=== PATIENT | female | born 1955 | race Caucasian/White ===

== ENCOUNTER 2017-05-24 09:15 | Inpatient (IN) | payer OTHER ==
[~2017-05-24] VITALS: Ht 154.9 cm; Wt 116.8 kg
--- NOTE | ~2017-05-24 | CON ---
[place], [place] REPORT OF CONSULTATION [id number] UNIT #: [id number] ROOM: 522 DOCTOR: DANA CHAUDHARY MD BIRTHDATE: [birth year] DOS: 05/24/2017 REASON FOR CONSULTATION: Chest heaviness. HISTORY OF PRESENT ILLNESS: The patient is a 61-year-old woman with a history of diabetes and hypertension. She presented to the hospital with "dizziness" which has been present for a year, but has been getting worse lately. She states that she has been evaluated here for this in the past and no adequate explanation for his symptoms has been forthcoming. She has not seen an ear, nose and throat physician. She states that the dizziness is worse with changes in posture. She states that she feels disoriented and does not know exactly where the ground is. Lying down makes it worse. She has been treated with meclizine in the past without benefit. The patient was referred to Cardiology because of chest tightness. She states that it is intermittent. It is associated with dyspnea and it is hard for the patient to determine whether the dyspnea makes her chest feel tighter, the tightness makes her dyspneic. She notes that when she is active, it is better if she is resting. It is not changed much lately. PAST MEDICAL HISTORY: Includes: 1. Essential hypertension. 2. Type 2 diabetes mellitus. 3. Long-term and ongoing cigarette abuse. 4. Chronic obstructive pulmonary disease with frequent wheezing. 5. Graves' disease status post radioactive iodine thyroid ablation. 6. History of cervical cancer. 7. Status post hysterectomy, cholecystectomy and tonsillectomy. MEDICATIONS: Prior to admission, cetirizine 10 mg daily, citalopram 40 mg daily, levothyroxine 175 mcg daily, lisinopril 10 mg daily, metformin 500 mg b.i.d., metoprolol 100 mg daily and omeprazole 40 mg daily. ALLERGIES: She has no known drug allergies. FAMILY HISTORY: Negative for early coronary artery disease. Her daughter does have some form of tachycardia syndrome. REVIEW OF SYSTEMS: The patient denies diplopia or loss of vision. She denies syncope, although she feels lightheaded frequently. She feels like she might fall, but has not fallen yet. She denies focal weakness. She denies orthopnea or PND. She denies fevers, chills or sweats. She has had a gradual weight gain over the last year. She denies nausea or vomiting. She denies hemoptysis or hematemesis. She denies any change in bowel or bladder habits and denies bleeding in her stools or urine. She does admit to mild peripheral edema. She denies any skin rashes. She denies polyuria or polydipsia. SOCIAL HISTORY: The patient is a . Her of heart disease. She does smoke up to a pack a day. [place], [place] REPORT OF CONSULTATION NAME: NITIN LOCKETT UNIT #: [id number] ROOM: 522 DOCTOR: DANA CHAUDHARY MD BIRTHDATE: [birth year] PHYSICAL EXAMINATION: GENERAL: Reveals a morbidly obese white female who is awake, alert and oriented. VITAL SIGNS: Pulse is 68 and regular, blood pressure is 122/58. She is afebrile. She weighs 116.8 kg and has a body mass index 48.7. HEENT: Normocephalic and atraumatic. Extraocular muscles are intact. Sclerae are clear. Pupils are equal, round and react to light. The oral mucosa is moist. Tongue is midline. NECK: Supple. She has no jugular distention. Carotids are full and I heard no bruits. She had no neck or supraclavicular masses. LUNGS: Respirations are slightly labored at rest. She does have loud bruit scattered throughout all of her lung owen. She has no presacral edema or chest wall tenderness. CARDIOVASCULAR: Her heart has a regular rhythm without murmurs, rubs or gallops. The PMI is not displaced. She has no precordial heave, lift or thrill. ABDOMEN: Obese, but otherwise benign, without masses, organomegaly or bruits. EXTREMITIES: Showed no clubbing, cyanosis or edema. She had no palpable cords or Homans sign. Pedal pulses are full and equal bilaterally. IMPRESSION: 1. Acute exacerbation of chronic lung disease. The patient is actively wheezing and feels uncomfortable lying flat. While I agree that she probably should undergo cardiac testing, I do not think that she would tolerate a pharmacologic stress test at this time and I therefore will postpone it. 2. Essential hypertension, which is in good control. 3. Type 2 diabetes mellitus. 4. Dizziness, which sounds like a balance issue as opposed to hypotension and near syncope. PLAN: We will be getting an echocardiogram to assess left ventricular function, wall motion and valve function. For now, we will postpone her stress test. Down the line, possibly as an outpatient, a pharmacologic stress test would be useful in her ongoing management; however, I think it is very unlikely that her tightness currently has anything to do with coronary ischemia. The patient was strongly advised to quit smoking immediately. A CAT scan of the chest is pending to evaluate her for possible lingular pneumonia, which appears to be present on her standard chest x-ray. Bronchodilator therapy, etc. will be at the discretion of her primary physicians; however, I would like her lungs to be clear before I consider stressing her. [facility] and I thank the hospitalist physicians for asking our advice regarding the patient's care. [place], [place] REPORT OF CONSULTATION NAME: NITIN LOCKETT [facility] UNIT #: [id number] ROOM: 522 DOCTOR: DANA CHAUDHARY MD BIRTHDATE: [birth year] DANA CHAUDHARY MD CM:CONSTR:REPORT OF CONSULTATION 19 05/24/[id number] interface
[~2017-05-24 09:15] MED LIST: ADVAIR 250/501 EA INH; CELEXA40 MG PO; Cimetidine400 MG PO; D-1000 185 MG-11 TAB PO; FLEXERIL5 MG PO; FLUCONAZOLE100 MG PO; HYDROCODONE BIT1 T11 PO; IBU800 MG PO; LASIX20 MG PO; LASIX40 MG PO; LEVOTHYROXINE0.15 M1 PO; LEVOTHYROXINE0.15 MG PO; MECLIZINE HCL12.5 MG PO; MELOXICAM7.5 MG PO; MICONAZOLE NITRATE 2% T; NAPROSYN500 MG PO; NORCO 325 MG-51 TAB PO; NORCO 5-325 TA1 EACH PO; NYAMYC100000 U/G T; OMEPRAZOLE40 MG PO; PRINIVIL10 MG PO; SYMBICORT1 AE1 INH; SYNTHROID0.137 MG PO; TOPROL XL100 MG PO; YEAST CREAM
[2017-05-24 09:22] VITALS: BP 143/74
[2017-05-24] MEDS ORDERED: METFORMIN500 MG PO (09:25)
[2017-05-24 10:08] LABS: BASO # 0.1 10*3/uL (0.0-0.1); BASO % 0.4 % (0.0-1.0); EOS # 0.1 10*3/uL (0.0-0.4); EOS % 0.9 % (1.0-4.0); HEMATOCRIT 43.4 % (37.0-47.0); LYMPH # 2.1 10*3/uL (1.3-4.4); LYMPH % 15.5 % (27.0-41.0); MEAN CELL VOLUME 91.9 fl (81.0-99.0); MEAN CORPUSCULAR HGB 31.8 pg (27.0-31.0); MEAN CORPUSCULAR HGB CONC 34.6 g/dl (33.0-37.0); MEAN PLATELET VOLUME 9.9 fl (9.6-12.3); MONO # 0.9 10*3/uL (0.1-1.0); MONO % 6.6 % (3.0-9.0); NEUT # 10.5 10*3/uL (2.3-7.9); NEUT % 76.2 % (47.0-73.0); PLATELET COUNT AUTOMATED 314 10*3/uL (130-400); RED BLOOD COUNT 4.72 10*6/uL (4.10-5.10); RED CELL DISTRI WIDTH 12.9 % (0-14.5); WHITE BLOOD COUNT 13.8 10*3/uL (4.8-10.8)
[2017-05-24 10:25] LABS: ALBUMIN 3.1 gm/dl (3.1-4.5); ALKALINE PHOSPHATASE 108 U/L (45-117); BUN 9 mg/dl (7-24); CHLORIDE 102 mmol/L (98-107); CREATININE 0.57 mg/dL (0.55-1.02); FREE T4 1.68 ng/dl (0.76-1.46); POTASSIUM 3.3 mmol/L (3.5-5.1); SGOT/AST 14 IU/L (3-35); SGPT/ALT 21 U/L (12-78); SODIUM 137 mmol/L (136-145); TOTAL PROTEIN 7.3 gm/dL (6.4-8.2)
[2017-05-24 10:28] LABS: TROPONIN I < 0.015 ng/ml (<0.045)
[2017-05-24 10:31] LABS: THYROID STIM HORMONE (HS) 0.678 uIU/ml (0.358-4.75)
[2017-05-24 11:20] VITALS: BP 128/76
[2017-05-24 11:27] LABS: BILIRUBIN NEGATIVE (NEGATIVE); BLOOD 2+ (NEGATIVE); CLARITY CLEAR (CLEAR); COLOR YELLOW (YELLOW); GLUCOSE NEGATIVE (NEGATIVE); KETONE NEGATIVE (NEGATIVE); LEUKO ESTERASE NEGATIVE (NEGATIVE); NITRITE NEGATIVE (NEGATIVE); UROBILINOGEN 0.2 E.U./dl (0.2-1.0)
[2017-05-24 13:00] VITALS: BP 142/80
[2017-05-24] MEDS ORDERED: ZYRTEC10 MG PO (13:29)
[2017-05-24 13:45] VITALS: BP 116/51
--- NOTE | 2017-05-24 13:50 | NUR ---
Time: 1349 A 61 year old FEMALE admitted to 5E under services of JANAE CLAROS DO, Pt. arrived via stretcher from ER. Chief complaint: FEELING DIZZY FOR THE PAST MONTH. JUST STARTED METFORMIN A LITTLE OVER A MONTH AGO. SALOME CHEUNG
--- NOTE | 2017-05-24 14:02 | NUR ---
MEDS VERIFIED WITH [facility]
--- NOTE | 2017-05-24 14:30 | NUR ---
NOTIFIED DR CONWAY THAT MEDS WERE VERIFIED
--- NOTE | 2017-05-24 15:53 | NUR ---
NOTIFIED RAJ IN [facility] OF CONSULT
[2017-05-24 16:00] VITALS: BP 122/58
[2017-05-24 20:00] VITALS: BP 130/61
--- NOTE | 2017-05-24 20:00 | NUR ---
PT. AWAKE, ALERT AND ORIENTED X 3 AT THIS TIME. PT. IN BED AT THIS TIME. PT. DENIES SOB, LUNGS CLEAR. PT. DENIES CP AT THIS TIME, HRR, PPP, TRACE EDEMA TO BLE. BS NORMO X 4 QUADS, DENIES NVD. PT. AMBULATORY, SKIN WDI. CALL LIGHT WITHIN REACH, BED IN LOWEST POSITION, WHEELS LOCKED.
[2017-05-25] VITALS: BP 144/73
[2017-05-25 07:15] LABS: BASO # 0.1 10*3/uL (0.0-0.1); BASO % 0.7 % (0.0-1.0); EOS # 0.1 10*3/uL (0.0-0.4); EOS % 1.3 % (1.0-4.0); HEMATOCRIT 41.6 % (37.0-47.0); HEMOGLOBIN 13.9 g/dl (12.0-16.0); LYMPH # 3.4 10*3/uL (1.3-4.4); LYMPH % 31.5 % (27.0-41.0); MEAN CELL VOLUME 96.5 fl (81.0-99.0); MEAN CORPUSCULAR HGB 32.3 pg (27.0-31.0); MEAN CORPUSCULAR HGB CONC 33.4 g/dl (33.0-37.0); MEAN PLATELET VOLUME 10.1 fl (9.6-12.3); MONO # 0.7 10*3/uL (0.1-1.0); MONO % 6.8 % (3.0-9.0); NEUT # 6.4 10*3/uL (2.3-7.9); NEUT % 59.4 % (47.0-73.0); PLATELET COUNT AUTOMATED 302 10*3/uL (130-400); RED BLOOD COUNT 4.31 10*6/uL (4.10-5.10); WHITE BLOOD COUNT 10.8 10*3/uL (4.8-10.8)
[2017-05-25 07:37] LABS: ALBUMIN 2.8 gm/dl (3.1-4.5); BUN 10 mg/dl (7-24); CHLORIDE 104 mmol/L (98-107); CHOLESTEROL 136 mg/dL (<200); CREATININE 0.58 mg/dL (0.55-1.02); PHOSPHOROUS 2.3 mg/dL (2.5-4.9); POTASSIUM 3.7 mmol/L (3.5-5.1); SGOT/AST 13 IU/L (3-35); SGPT/ALT 19 U/L (12-78); SODIUM 139 mmol/L (136-145); TRIGLYCERIDES 130 mg/dl (<150); VLDL CHOLESTEROL 26 mg/dL (6-40)
[2017-05-25 07:43] LABS: ALKALINE PHOSPHATASE 95 U/L (45-117); HDL CHOLESTEROL 39 mg/dl (40-60); LDL CHOLESTEROL 71 mg/dL (9-159); THYROID STIM HORMONE (HS) 0.564 uIU/ml (0.358-4.75); TOTAL PROTEIN 6.6 gm/dL (6.4-8.2)
[2017-05-25 08:00] VITALS: BP 133/54
--- NOTE | 2017-05-25 08:30 | NUR ---
Administrative Services Coordinator in to talk to patient. Patient states lives at home alone. There are no steps in the home. Physician: Jyoti Galloway CNP Pharmacy: [facility] services: none Patient's level of ADLs: INDEPENDENT Patient has working utilities: yes DME: none Follow-up physician's appointment after d/c: will be made by hospitalist nurse director upon discharge Does patient want to access PORTAL?: no Discharge plan discussed with patient. She lives at home alone. She is independent in her ADLs and ambulation. Denies any home needs at this time. When medically stable she will be discharged to home. CHARLIE BAJWA
[2017-05-25 09:15] LABS: VITAMIN D, 25-HYDROXY 19.1 ng/mL (30-100)
--- NOTE | 2017-05-25 10:43 | NUR ---
PT WAS EVALUATED BY OCCUPATIONAL THERAPY ON THE 5TH FLOOR FOR CONSULT REGUARDING WEAKNESS. PT LOW LEVEL EVALUATION WITH SYMPTOMS OF DIZZINESS WHEN TRANSFERING. PT PRECAUTIONS OF DIZZINESS AND IV. PT WITH NO REPORTS OF DIZZINESS DURING EVALUATION AND ABLE TO COMPLETE ADL/IADL TASKS WITH IND. PT NOT RECOMMENDED FOR FURTHER INPATIENT OCCUPATIONAL THERAPY THREATMENS. RECOMMEND HOME HEALTH OT TO ASSESS NEED FOR SHOWER CHAIR/TUB BENCH PER PT REQUEST. THANK YOU FOR THE CONSULT. KIP MONAHAN OTR/L
[2017-05-25 12:00] VITALS: BP 101/77
[2017-05-25] MEDS ORDERED: SOLU-MEDRO40 MG/1 ML IV (14:26)
[2017-05-25] MEDS ORDERED: Vitamin D PO (14:26)
[2017-05-25] MEDS ORDERED: ASPIRIN325 MG PO (14:26)
--- NOTE | 2017-05-25 15:51 | NUR ---
PT REPORT GIVEN TO RAJ AT [facility]. HEAD TO TOE ASSESSMENT GIVEN [facility] COURSE OF CARE. TELEPHONE NUMBER GIVEN TO FLOOR INCASE OF FURTHER QUESTIONS. AT THIS TIME. NO CONCERNS WERE GIVEN.
--- NOTE | 2017-05-25 16:51 | NUR ---
Physcial therapy evaluation completed. Pt in NAD. Pt denied dizziness at any time during this assessemt. Pt able to ambulate x 150ft without assistive devices with supervision, no LOB, no unsteadiness. Transfers independent. Pt denies pain. Pt has equal LE strength, performs very well on Romberg with eyes open and eyes closed, performes well on proprioception and coordination tasks. Pt reports the only dizziness she had was lying supine for tests today. Pt to follow up with neurology for further testing. Moderate level complexity for this PT Eval d/t time spent with patient, multiple tests and with chart review. Thank you for this referral, safia norris, PT
--- NOTE | 2017-05-25 18:00 | NUR ---
Discharge instructions reviewed with patient/family. Patient receptive and verbalizes understanding. Follow-up care arranged. Written instructions given to patient/family. BINH BECK
== END 2017-05-25 18:00 | disposition short-term general hospital (02) | DRG 64 ==
LOC: ED 09:15 → EDHOLD 11:49 → 5E 11:49 → EDHOLD 12:18 → 5E 12:53
PROVIDERS: Internal Medicine; Physician Assistant; ADMIT Internal Medicine
DX: I63.133 Cerebral infarction due to embolism of bilateral carotid arteries (principal); J18.1 Lobar pneumonia, unspecified organism; I24.9 Acute ischemic heart disease, unspecified; E11.65 Type 2 diabetes mellitus with hyperglycemia; J44.1 Chronic obstructive pulmonary disease with (acute) exacerbation; J44.0 Chronic obstructive pulmonary disease with (acute) lower respiratory infection; K21.9 Gastro-esophageal reflux disease without esophagitis; R07.89 Other chest pain; I95.1 Orthostatic hypotension; F17.210 Nicotine dependence, cigarettes, uncomplicated; R31.9 Hematuria, unspecified; E87.6 Hypokalemia; I10 Essential (primary) hypertension; E05.00 Thyrotoxicosis with diffuse goiter without thyrotoxic crisis or storm; Z79.84 Long term (current) use of oral hypoglycemic drugs; Z79.82 Long term (current) use of aspirin; Z79.899 Other long term (current) drug therapy; Z90.49 Acquired absence of other specified parts of digestive tract; Z90.710 Acquired absence of both cervix and uterus; Z80.8 Family history of malignant neoplasm of other organs or systems; Z82.3 Family history of stroke; Z82.49 Family history of ischemic heart disease and other diseases of the circulatory system

== ENCOUNTER 2017-08-31 17:16 | Emergency (ER) | payer OTHER ==
[~2017-08-31] VITALS: Wt 114.8 kg
[2017-08-31 17:16] VITALS: BP 141/62
[~2017-08-31 17:16] MED LIST changes: +ASPIRIN325 MG PO; +METFORMIN500 MG PO; +SOLU-MEDRO40 MG/1 ML IV; +Vitamin D PO; +ZYRTEC10 MG PO
[2017-08-31] MEDS ORDERED: FLUCONAZOLE100 MG PO (17:52)
== END 2017-08-31 17:57 | disposition home or self-care (01) ==
LOC: ED 17:16
DX: B36.8 Other specified superficial mycoses (principal); F17.200 Nicotine dependence, unspecified, uncomplicated; E11.9 Type 2 diabetes mellitus without complications; K21.9 Gastro-esophageal reflux disease without esophagitis; I10 Essential (primary) hypertension; Z90.710 Acquired absence of both cervix and uterus; Z90.49 Acquired absence of other specified parts of digestive tract; Z79.82 Long term (current) use of aspirin; Z79.899 Other long term (current) drug therapy

== ENCOUNTER 2017-09-04 11:20 | Inpatient (IN) | payer OTHER ==
[~2017-09-04] VITALS: Ht 157.4 cm; Wt 114.9 kg
--- NOTE | ~2017-09-04 | PR ---
[place], [place] PROGRESS NOTE NAME: NITIN LOCKETT UNIT #: [id number] ROOM: 506 DOCTOR: PRABHA ALEGRE MD BIRTHDATE: [birth year] DOS: NO DICTATION. Mamta Alegre MD CM:PNTRANS [id number] PRABHA ALEGRE MD 09/06/17 0704 YOGESH DALEY MIS.R
--- NOTE | ~2017-09-04 | PR ---
[place], [place] PROGRESS NOTE NAME: NITIN LOCKETT [facility] #: [id number] UNIT #: [id number] ROOM: 506 DOCTOR: PRABHA ALEGRE MD BIRTHDATE: [birth year] DOS: 09/04/2017 CHIEF COMPLAINT: Generalized rash all over the body, pruritic. HISTORY OF PRESENT ILLNESS: This is a 62-year-old female with past medical history of diabetes, obesity, presenting with a generalized pruritic rash which has been going on for last 3 months according to her. Initially, she had a rash under her breast, which was treated with nystatin powder and bacitracin; did not get better; recently was in the ER and was given 100 mg of Diflucan that did not resolve her symptoms, but she now noticed to have some chills and finally decided to come to the ER. On her presentation, she had a leukocytosis of 15.9. Her vitals reveal temperature which is in normal range. Labs reveal no lactic acidosis. Alk phos slightly elevated. PAST MEDICAL HISTORY: Significant for COPD with emphysema, GERD, Graves' disease, hyperlipidemia, hypertension, hypothyroidism; type 2 diabetes mellitus, on oral hypoglycemics. PAST SURGICAL HISTORY: Hysterectomy, radioactive iodine thyroid ablation, history of cholecystectomy, trauma to the right upper extremity, cholecystectomy and tonsillectomy. SOCIAL HISTORY: The patient smokes 1 pack of cigarettes per day, active smoker. No use of marijuana. Nonalcoholic. No other illicit drug use. FAMILY HISTORY: Father has history of skin cancer. Mother of old age. ALLERGIES: No known drug allergies. MEDICATIONS: Include aspirin, cetirizine, Celexa, fluconazole, fluticasone, levothyroxine, lisinopril, metformin, metoprolol, omeprazole. REVIEW OF SYSTEMS: Twelve-point review of systems has been done. Pertinent negative/positives are included in HPI, rest are noncontributory. PHYSICAL EXAMINATION: VITAL SIGNS: Temperature of 98.0, pulse rate of 68, blood pressure of 128/56, respiratory rate of 16, oxygen saturation 93% on room air. GENERAL: The patient is alert, oriented x 3 in mild distress because of her itching. HEENT: Atraumatic, normocephalic. PERRLA, EOMI. Proptosis noted in eyes. No conjunctival injection. RESPIRATORY: Air entry bilaterally equal; focal wheezing on both the lungs on expiration, right more than left. CARDIOVASCULAR: S1, S2 normal. No murmurs, rubs or gallops. ABDOMEN: Soft, nontender, nondistended. Bowel sounds present in 4 quadrants. EXTREMITIES: A 1+ pitting edema. SKIN: Generalized papule plaque like presentation concentrated over her chest and upper back, scattered over her abdomen. Under her breasts, there is generalized erythema, plaque-like lesion around her nipples; none in oral or [place], [place] PROGRESS NOTE NAME: NITIN LOCKETT UNIT #: [id number] ROOM: 506 DOCTOR: PRABHA ALEGRE MD BIRTHDATE: [birth year] vaginal mucosa. None of these ulcerations have pustular drainage. They are nontender. Some have crusting, not much of drainage at this point. There are also eczematous lesions on her hand. LABORATORY DATA: WBC 15.9, hemoglobin 14.9, sodium 139, potassium 3.4, BUN 12, creatinine 0.72, glucose of 105, no lactic acidosis. Alk phos 126. IMPRESSION AND PLAN: Generalized, pruritic, nontender papular plaque-like lesions. Differentials At this point include Erica intertrigo, eczema herpeticum, secondary bacterial infection with MRSA or corynebacterium minutissimum causing erythrasma. PLAN: 1. At this time, I agree with continuing IV fluconazole for systemic infection. 2. The patient has history of MRSA skin infection in the past. Continue vancomycin. There is no open lesion from where I can take a culture. 3. Consult General Surgery for skin biopsy. 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 These lesions do not look like zoster lesions. 4. Check HIV and hepatitis panel. 5. Wound care with ____. Thank you for your consult. Please call for any questions. We will follow the patient. Mamta Alegre MD CM:PNTRANS [phone] PRABHA ALEGRE MD 09/06/17 0704 YOGESH DALEY.R
--- NOTE | ~2017-09-04 | PR ---
[place], [place] PROGRESS NOTE NAME: NITIN LOCKETT UNIT #: [id number] ROOM: 506 DOCTOR: PRABHA ALEGRE MD BIRTHDATE: [birth year] DOS: 09/05/2017 SUBJECTIVE: Currently, the patient denies any fever or chills. No nausea, vomiting. Subjectively, her pruritus is much better. Tolerating the IV medications. No side effects noted. REVIEW OF SYSTEMS: A 10-point review of systems has been done. Pertinent negative positive has been included in HPI notes and noncontributory. PHYSICAL EXAMINATION: VITAL SIGNS: Temperature 98.2, pulse rate of 73, blood pressure 131/64, oxygen saturation 95% on room air. GENERAL: The patient is alert, oriented x 3, not in acute distress. RESPIRATORY: Air entry bilaterally equal. No wheeze or crackles. CARDIOVASCULAR: S1, S2 normal. No murmur, rubs or gallops. ABDOMEN: Soft, nontender, nondistended. Bowel sounds present in all quadrants. EXTREMITIES: 2+ pitting edema. SKIN: Generalized rash over her body, papular pustular ____ now healing. None of them have any pustular lesions. Most of them have crusting and there is decreased erythema, nontender, no discharge, decreasing in size. No surrounding cellulitis. LABORATORY DATA: WBC count 14.9, platelets 309, predominantly neutrophilia. Lymphocytic percentage slightly increased today, not increased eosinophil counts. BUN 11, creatinine 0.64. Hemoglobin A1c 6.5. Liver enzymes within normal limits. HSV, hepatitis C, hep B serology pending. IMPRESSION AND PLAN: 1. Generalized pruritic papular lesions. Differentials include bacterial superinfections, Eczema herpeticum. 2. Erica intertrigo. PLAN: 1. At this point, both clinically as well on physical exam, patient's lesions are improving. Added HIV screen and hepatitis B pending. In her case, most of the lesions have crusted, still trying to send HSV PCR. HSV serology is only helpful to see if she has IgG elevated. If the patient does not improve without acyclovir treatment then only would intend to treat it, otherwise not. 2. Overall, If clinically improves, we will change her IV dye, fluconazole and IV vancomycin to 2 pills tomorrow. Currently, holding off on skin biopsy. Discussed with Dr. Ochoa. Thank you for the consult. Please call for any questions. [place], [place] PROGRESS NOTE NAME: NITIN LOCKETT UNIT #: [id number] ROOM: [facility] DOCTOR: PRABHA ALEGRE MD BIRTHDATE: [birth year] Mamta Alegre MD CM:PNTRANS [phone] PRABHA ALEGRE MD 09/05/17 230 interface
[2017-09-04 11:23] VITALS: BP 167/86
[2017-09-04 12:57] LABS: BASO # 0.1 10*3/uL (0.0-0.1); BASO % 0.8 % (0.0-1.0); EOS # 0.3 10*3/uL (0.0-0.4); EOS % 1.6 % (1.0-4.0); HEMATOCRIT 44.2 % (37.0-47.0); HEMOGLOBIN 14.9 g/dl (12.0-16.0); LYMPH # 2.6 10*3/uL (1.3-4.4); LYMPH % 16.5 % (27.0-41.0); MEAN CELL VOLUME 92.7 fl (81.0-99.0); MEAN CORPUSCULAR HGB 31.2 pg (27.0-31.0); MEAN CORPUSCULAR HGB CONC 33.7 g/dl (33.0-37.0); MEAN PLATELET VOLUME 9.8 fl (9.6-12.3); MONO # 0.9 10*3/uL (0.1-1.0); MONO % 5.9 % (3.0-9.0); NEUT # 11.9 10*3/uL (2.3-7.9); NEUT % 74.8 % (47.0-73.0); PLATELET COUNT AUTOMATED 339 10*3/uL (130-400); RED BLOOD COUNT 4.77 10*6/uL (4.10-5.10); RED CELL DISTRI WIDTH 13.3 % (0-14.5); WHITE BLOOD COUNT 15.9 10*3/uL (4.8-10.8)
[2017-09-04 13:11] LABS: ALBUMIN 3.2 gm/dl (3.1-4.5); ALKALINE PHOSPHATASE 126 U/L (45-117); BUN 12 mg/dl (7-24); CHLORIDE 100 mmol/L (98-107); CREATININE 0.72 mg/dL (0.55-1.02); POTASSIUM 3.4 mmol/L (3.5-5.1); SGOT/AST 13 IU/L (3-35); SGPT/ALT 21 U/L (12-78); SODIUM 139 mmol/L (136-145); TOTAL PROTEIN 7.3 gm/dL (6.4-8.2)
[2017-09-04 14:03] VITALS: BP 154/80
[2017-09-04] MEDS ORDERED: ASPIRIN ADULT L81 M1 PO (14:06)
[2017-09-04] MEDS ORDERED: LISINOPRIL10 M1 PO (14:09)
[2017-09-04] MEDS ORDERED: BREO ELLIPTA 11 EACH INH (14:09)
[2017-09-04] MEDS ORDERED: ALL DAY ALLERGY10 MG PO (14:09)
[2017-09-04] MEDS ORDERED: AVPAK METFORMI500 M1 PO (14:11)
[2017-09-04 14:30] VITALS: BP 118/71
[2017-09-04 20:00] VITALS: BP 120/56
[2017-09-05] VITALS: BP 117/44
[2017-09-05 06:47] LABS: BASO # 0.1 10*3/uL (0.0-0.1); BASO % 0.7 % (0.0-1.0); EOS # 0.5 10*3/uL (0.0-0.4); EOS % 3.1 % (1.0-4.0); HEMATOCRIT 42.1 % (37.0-47.0); HEMOGLOBIN 13.9 g/dl (12.0-16.0); LYMPH % 19.8 % (27.0-41.0); MEAN CELL VOLUME 93.8 fl (81.0-99.0); MEAN PLATELET VOLUME 10.2 fl (9.6-12.3); MONO % 6.4 % (3.0-9.0); NEUT # 10.4 10*3/uL (2.3-7.9); NEUT % 69.6 % (47.0-73.0); PLATELET COUNT AUTOMATED 309 10*3/uL (130-400); RED BLOOD COUNT 4.49 10*6/uL (4.10-5.10); RED CELL DISTRI WIDTH 13.5 % (0-14.5); WHITE BLOOD COUNT 14.9 10*3/uL (4.8-10.8)
[2017-09-05 07:12] LABS: BUN 11 mg/dl (7-24); CHLORIDE 100 mmol/L (98-107); CREATININE 0.64 mg/dL (0.55-1.02); PHOSPHOROUS 3.6 mg/dL (2.5-4.9); POTASSIUM 3.3 mmol/L (3.5-5.1); SODIUM 138 mmol/L (136-145)
[2017-09-05 08:00] VITALS: BP 132/54
[2017-09-05 12:00] VITALS: BP 131/64
[2017-09-05 16:00] VITALS: BP 141/76
[2017-09-05 20:00] VITALS: BP 134/62
[2017-09-06] VITALS: BP 146/73
[2017-09-06 05:51] LABS: BASO # 0.1 10*3/uL (0.0-0.1); BASO % 0.8 % (0.0-1.0); EOS # 0.6 10*3/uL (0.0-0.4); EOS % 4.6 % (1.0-4.0); HEMOGLOBIN 13.3 g/dl (12.0-16.0); LYMPH # 2.1 10*3/uL (1.3-4.4); LYMPH % 17.6 % (27.0-41.0); MEAN CELL VOLUME 94.7 fl (81.0-99.0); MEAN CORPUSCULAR HGB 30.7 pg (27.0-31.0); MEAN CORPUSCULAR HGB CONC 32.4 g/dl (33.0-37.0); MONO # 0.9 10*3/uL (0.1-1.0); MONO % 7.6 % (3.0-9.0); NEUT # 8.3 10*3/uL (2.3-7.9); NEUT % 69.2 % (47.0-73.0); PLATELET COUNT AUTOMATED 279 10*3/uL (130-400); RED BLOOD COUNT 4.33 10*6/uL (4.10-5.10); RED CELL DISTRI WIDTH 13.4 % (0-14.5)
[2017-09-06 06:16] LABS: BUN 11 mg/dl (7-24); CHLORIDE 101 mmol/L (98-107); CREATININE 0.59 mg/dL (0.55-1.02); POTASSIUM 3.8 mmol/L (3.5-5.1); SODIUM 138 mmol/L (136-145)
[2017-09-06 07:05] LABS: HEPATITIS B SURFACE AG Negative (Negative); HEPATITIS C VIRUS ANTIBODY <0.1 s/co (0.0-0.9); HIV 1+2 AB + HIV1 P24 AG Non Reactive (Non Reactive)
[2017-09-06 08:00] VITALS: BP 124/50
[2017-09-06 12:00] VITALS: BP 110/52
[2017-09-06 16:00] VITALS: BP 129/51
[2017-09-06 18:04] LABS: HSV-2 DNA Negative (Negative)
[2017-09-06 20:00] VITALS: BP 128/63
[2017-09-07] VITALS: BP 142/53
[2017-09-07 08:00] VITALS: BP 110/60
[2017-09-07 12:00] VITALS: BP 140/55
[2017-09-07 16:00] VITALS: BP 140/57
[2017-09-07 20:00] VITALS: BP 149/64
[2017-09-08] VITALS: BP 151/77
[2017-09-08 08:00] VITALS: BP 150/54
[2017-09-08] MEDS ORDERED: AVPAK METFORMI500 M1 PO (10:45)
[2017-09-08] MEDS ORDERED: FLUCONAZOLE50 MG PO (10:45)
[2017-09-08] MEDS ORDERED: VITAMIN D-32000 UNIT PO (10:45)
[2017-09-08] MEDS ORDERED: SEPTDS PO (10:46)
== END 2017-09-08 11:43 | disposition home or self-care (01) | DRG 600 ==
LOC: ED 11:20 → 5E 13:23 → EDHOLD 13:23 → 4E 13:43 → 5E 13:51
PROVIDERS: Internal Medicine; Nurse Practitioner Family; Student in an Organized Health Care Education/Training Program
DX: N61.0 Mastitis without abscess (principal); I50.32 Chronic diastolic (congestive) heart failure; I11.0 Hypertensive heart disease with heart failure; E11.65 Type 2 diabetes mellitus with hyperglycemia; J43.9 Emphysema, unspecified; B36.9 Superficial mycosis, unspecified; D72.810 Lymphocytopenia; B37.2 Candidiasis of skin and nail; L30.9 Dermatitis, unspecified; D72.829 Elevated white blood cell count, unspecified; F32.9 Major depressive disorder, single episode, unspecified; F41.9 Anxiety disorder, unspecified; L29.9 Pruritus, unspecified; D72.9 Disorder of white blood cells, unspecified; E87.6 Hypokalemia; K21.9 Gastro-esophageal reflux disease without esophagitis; F17.210 Nicotine dependence, cigarettes, uncomplicated; E03.9 Hypothyroidism, unspecified; E78.5 Hyperlipidemia, unspecified; L30.4 Erythema intertrigo; B95.62 Methicillin resistant Staphylococcus aureus infection as the cause of diseases classified elsewhere; Z90.710 Acquired absence of both cervix and uterus; Z71.6 Tobacco abuse counseling; Z90.49 Acquired absence of other specified parts of digestive tract; Z80.9 Family history of malignant neoplasm, unspecified; Z78.9 Other specified health status; Z79.899 Other long term (current) drug therapy; Z79.82 Long term (current) use of aspirin

== ENCOUNTER → 2018-02-07 | Day surgery (SDC) | payer OTHER ==
[~2018-02-07] VITALS: Ht 154.9 cm; Wt 113.4 kg
[~2018-02-07] MED LIST changes: +ALL DAY ALLERGY10 MG PO; +ASPIRIN ADULT L81 M1 PO; +AVPAK METFORMI500 M1 PO; +BREO ELLIPTA 11 EACH INH; +FLUCONAZOLE50 MG PO; +LISINOPRIL10 M1 PO; +SEPTDS PO; +VITAMIN D-32000 UNIT PO
--- NOTE | ~2018-02-07 | O ---
[place], [place] OPERATIVE NOTE NAME: NITIN LOCKETT UNIT #: [id number] ROOM: DOCTOR: MABEL MEDINA MD BIRTHDATE: [birth year] DOS: 02/07/2018 PREOPERATIVE DIAGNOSIS: Cataract, right eye. POSTOPERATIVE DIAGNOSIS: Cataract, right eye. OPERATION: Extracapsular cataract extraction by phacoemulsification with posterior chamber intraocular lens implantation, right eye. ANESTHESIA: Monitored standby. OPERATIVE FINDINGS AND PROCEDURE: 2% Xylocaine topical anesthetic gel was applied to the eye in the preop area. The patient was taken to the operating room and prepped and draped in the standard fashion for sterile intraocular surgery. A time out procedure was performed verifying correct patient, correct site and corrects lens with Delicia Medina M.D. The operating microscope was swung into position and the lid speculum was inserted. Using a Ginger paracentesis blade, a paracentesis was made through clear cornea. Viscoelastic was used to fill the anterior chamber. Using a metal keratome a 2.4 mm self-sealing clear corneal cataract incision was made temporally at the limbus. Using a pre-bent 25 gauge cystotome needle, a standard continuous curvilinear capsulorrhexis was performed. The anterior capsule was removed with forceps. The lens nucleus was hydrodissected and phacoemulsified in the posterior chamber. Cortical material was removed with the irrigation aspiration hand piece and the posterior capsule was then polished with a curet under irrigation. The posterior chamber and capsular bag were filled with viscoelastic. A posterior chamber intraocular lens manufactured by: [employer], Model #[id number] and 17.0 diopters in strength were then inserted into the posterior chamber and within the capsular bag using the lens cartridge and injector system. Viscoelastic was removed using the irrigation aspiration handpiece. The anterior chamber was filled with balanced salt solution through the paracentesis. Both the paracentesis site and cataract incisions were hydrated with BSS and verified to be water-tight and self-sealing. Cefuroxime 1 mg/0.1 mL was injected into the anterior chamber through the paracentesis site. The incision checked to be water-tight using a Weck-Mendy sponge. The integrity of the cataract wound and ocular tension were checked. Lid speculum and drapes were removed. The patient was transferred from the operating room to the recovery room in satisfactory condition. [place], [place] OPERATIVE NOTE NAME: NITIN LOCKETT UNIT #: [id number] ROOM: DOCTOR: ADAM QUINN,MABEL BIRTHDATE: [birth year] MABEL MEDINA MD CM:OPRECORD:OPERATIVE NOTE [id number] MABEL MEDINA MD 02/07/18 1024 interface
[2018-02-07 09:22] VITALS: BP 127/66
[2018-02-07 09:56] VITALS: BP 114/49
[2018-02-07 10:26] VITALS: BP 116/60
== END | disposition home or self-care (01) ==
LOC: SDC 02-01 08:00
DX: E11.36 Type 2 diabetes mellitus with diabetic cataract (principal); H25.811 Combined forms of age-related cataract, right eye; I10 Essential (primary) hypertension; K21.9 Gastro-esophageal reflux disease without esophagitis; J43.9 Emphysema, unspecified; F41.8 Other specified anxiety disorders; F17.200 Nicotine dependence, unspecified, uncomplicated; M19.90 Unspecified osteoarthritis, unspecified site; E07.9 Disorder of thyroid, unspecified; E66.9 Obesity, unspecified; Z68.42 Body mass index [BMI] 45.0-49.9, adult; Z90.49 Acquired absence of other specified parts of digestive tract; Z90.710 Acquired absence of both cervix and uterus; Z79.899 Other long term (current) drug therapy; Z98.890 Other specified postprocedural states; Z98.42 Cataract extraction status, left eye

== ENCOUNTER 2021-04-06 18:13 | Emergency (ER) | payer MEDICARE ==
[~2021-04-06] VITALS: Ht 157.4 cm; Wt 117.9 kg
[2021-04-06 20:22] VITALS: BP 178/89
[2021-04-06] MEDS ORDERED: HYDROCODONE-AC1 EAC1 PO (22:35)
== END 2021-04-06 22:32 | disposition home or self-care (01) ==
LOC: ED 18:13
DX: S43.005A Unspecified dislocation of left shoulder joint, initial encounter (principal); F17.200 Nicotine dependence, unspecified, uncomplicated; Z79.899 Other long term (current) drug therapy; Z79.82 Long term (current) use of aspirin; W01.0XXA Fall on same level from slipping, tripping and stumbling without subsequent striking against object, initial encounter; Y93.89 Activity, other specified; Y92.89 Other specified places as the place of occurrence of the external cause; Y99.8 Other external cause status

== ENCOUNTER 2021-04-07 08:13 | Emergency (ER) | payer MEDICARE ==
[~2021-04-07] VITALS: Wt 117.9 kg
[~2021-04-07 08:13] MED LIST changes: +HYDROCODONE-AC1 EAC1 PO
[2021-04-07 10:45] VITALS: BP 174/82
== END 2021-04-07 11:32 | disposition home or self-care (01) ==
LOC: ED 08:13
DX: M24.412 Recurrent dislocation, left shoulder (principal); E78.5 Hyperlipidemia, unspecified; I10 Essential (primary) hypertension; E11.9 Type 2 diabetes mellitus without complications; K21.9 Gastro-esophageal reflux disease without esophagitis; E03.9 Hypothyroidism, unspecified; F17.200 Nicotine dependence, unspecified, uncomplicated; Z79.899 Other long term (current) drug therapy; Z79.82 Long term (current) use of aspirin

== ENCOUNTER 2023-02-09 12:17 | Emergency (ER) | payer MEDICARE ==
[~2023-02-09] VITALS: Ht 157.4 cm; Wt 113.4 kg
[2023-02-09 12:39] VITALS: BP 122/91
[2023-02-09] MEDS ORDERED: VIBRAMYCIN100 MG PO (15:32)
== END 2023-02-09 16:10 | disposition home or self-care (01) ==
LOC: ED 12:17
DX: L08.89 Other specified local infections of the skin and subcutaneous tissue (principal); F32.A Depression, unspecified; I10 Essential (primary) hypertension; J44.9 Chronic obstructive pulmonary disease, unspecified; F41.9 Anxiety disorder, unspecified; M19.90 Unspecified osteoarthritis, unspecified site; B96.89 Other specified bacterial agents as the cause of diseases classified elsewhere; Z90.89 Acquired absence of other organs; Z90.710 Acquired absence of both cervix and uterus; Z90.49 Acquired absence of other specified parts of digestive tract; Z98.890 Other specified postprocedural states; F17.200 Nicotine dependence, unspecified, uncomplicated

== ENCOUNTER → 2023-02-20 | Outpatient (CLI) | payer MEDICARE ==
[~2023-02-20] MED LIST changes: +VIBRAMYCIN100 MG PO
== END | disposition home or self-care (01) ==
LOC: WOUNDCARE 00:53
PROVIDERS: ATTEND Nurse Practitioner Family
DX: L03.012 Cellulitis of left finger (principal); S61.402A Unspecified open wound of left hand, initial encounter; L08.9 Local infection of the skin and subcutaneous tissue, unspecified; I10 Essential (primary) hypertension; E03.9 Hypothyroidism, unspecified; I25.2 Old myocardial infarction; J44.9 Chronic obstructive pulmonary disease, unspecified; K21.00 Gastro-esophageal reflux disease with esophagitis, without bleeding; F17.290 Nicotine dependence, other tobacco product, uncomplicated; Z95.5 Presence of coronary angioplasty implant and graft; Z90.710 Acquired absence of both cervix and uterus; Z90.49 Acquired absence of other specified parts of digestive tract; X58.XXXA Exposure to other specified factors, initial encounter; Y93.89 Activity, other specified; Y92.89 Other specified places as the place of occurrence of the external cause; Y99.8 Other external cause status

== ENCOUNTER → 2023-03-03 | Outpatient (CLI) | payer MEDICARE | END | disposition home or self-care (01) | LOC: WOUNDCARE 02:06 | PROVIDERS: ATTEND Nurse Practitioner Family | DX: L03.012 Cellulitis of left finger (principal); L08.9 Local infection of the skin and subcutaneous tissue, unspecified; S61.402D Unspecified open wound of left hand, subsequent encounter; I10 Essential (primary) hypertension; E03.9 Hypothyroidism, unspecified; I25.2 Old myocardial infarction; K21.00 Gastro-esophageal reflux disease with esophagitis, without bleeding; J44.9 Chronic obstructive pulmonary disease, unspecified; F17.290 Nicotine dependence, other tobacco product, uncomplicated; Z95.5 Presence of coronary angioplasty implant and graft; Z90.710 Acquired absence of both cervix and uterus; Z90.49 Acquired absence of other specified parts of digestive tract; X58.XXXD Exposure to other specified factors, subsequent encounter ==